=== PATIENT | female | born 1990 | race Two or more races ===

== ENCOUNTER 2024-09-19 14:33 | Emergency (ER) | payer MEDICAID, SELFPAY ==
[2024-09-19 14:50] VITALS: BP 109/67; PULSE 67; RESP 18; TEMP 36.6; O2SAT 99
--- NOTE | 2024-09-19 15:30 | PD.EDRME ---
Rapid Medical Screening Exam RME Arrival date/time: 09/19/24 14:33 Chief Complaint: Neck Pain/Injury Time Seen by Provider: 09/19/24 15:04 Vital signs: Vital Signs Temperature 98 F 09/19/24 14:50 Pulse Rate 67 09/19/24 14:50 Respiratory Rate 18 09/19/24 14:50 Blood Pressure 109/67 09/19/24 14:50 Pulse Oximetry (%) 99 09/19/24 14:50 Oxygen Delivery Method Room Air 09/19/24 14:50 Vital signs reviewed by provider: Yes RME Narrative: 34-year-old female presents to the ED with a complaint of right sided neck pain that started this morning. She states she turned her head to the right and experienced a seizure. After she woke up she vomited. She indicates she is on Keppra 1000 mg every morning and 1500 mg every afternoon. She has not taken her medications in approximately 2 days because she forgets. She denies any recent illness with fever, chills, cough, upper respiratory complaints, diarrhea or abdominal pain. I have greeted and performed a focused initial assessment of this patient. A comprehensive ED assessment and evaluation of the patient, analysis of all test results, and completion of the medical decision making process will be conducted by additional ED providers. Labs and Keppra order level.
--- NOTE | 2024-09-19 15:57 | PC.NURSE ---
Lab cannot find pt.
--- NOTE | 2024-09-19 17:34 | PC.NURSE ---
PT CALLED 4 TIMES W/ NO ANSWER. PT ELOPED.
== END 2024-09-19 17:35 | disposition left against medical advice (07) ==
PROVIDERS: Emergency Provider Family Medicine
DX: M54.2 Cervicalgia (principal); Z53.29 Procedure and treatment not carried out because of patient's decision for other reasons
CPT/HCPCS: 80053; 80177; 80307; 81001; 85025; 87086; 99281

== ENCOUNTER 2024-09-23 12:20 | Emergency (ER) | payer MEDICAID, SELFPAY ==
[2024-09-23 12:21] VITALS: BMI 23.0
--- NOTE | 2024-09-23 12:29 | XR_ITS ---
Examination: Cervical spine 3 views Technique one AP lateral coned AP odontoid cervical spine 3 views Exam date and time: September 23, 2024 1345 hours INDICATIONS: Neck pain post seizure 5 days ago. FINDINGS: No cervical fracture Mild sclerosis and depression of the superior endplate T1 Intact odontoid IMPRESSION: Recommend CT scan thoracic spine follow-up to exclude mild compression T1 vertebral body
[2024-09-23 12:50] VITALS: BP 112/71; PULSE 67; RESP 17; TEMP 36.8; O2SAT 98; BMI 23.0
--- NOTE | 2024-09-23 14:01 | EDNOTE_ITS ---
<Statement entered by Monalisa Yao MD - 09/24/24 14:28> As co-signing physician, I was present and available for consult prn. I concur with the plan and care as documented by the midlevel provider. ED Neck Injury Pain RME/HPI General Chief Complaint: Neck Pain/Injury Stated Complaint: SEEN ON THURSDAY FOR NECK PAIN; NOT GETTING BETTER Time Seen by Provider: 09/23/24 12:29 Arrival date/time: 09/23/24 12:20 34-year-old female presents to the emergency department if complains of cervical pain patient reports no mid or lower back pain patient reports no direct trauma patient reports he had a seizure which she suffers from and had pain in her neck afterward Limitations: no limitations Related Data Home Medications ?Medication ?Instructions ?Recorded ?Confirmed levetiracetam 1,000 mg tablet 1,500 mg PO HS 11/05/19 09/30/23 (Keppra) levetiracetam 1,000 mg tablet 1,000 mg PO QAM 03/27/20 10/01/23 (Keppra) dicyclomine 10 mg capsule 10 mg PO TID PRN Pain 09/30/23 Previous Rx's ?Medication ?Instructions ?Recorded docusate sodium 100 mg capsule 100 mg PO BID #40 caps 10/01/23 (Colace) hydrocodone 5 mg-acetaminophen 325 1 tab PO Q6H PRN pa in (scale score 10/01/23 mg tablet 7-10) #20 tabs ibuprofen 600 mg tablet 600 mg PO Q8H PRN pain (scal e 10/01/23 score 4-6) #15 tabs Allergies Allergy/AdvReac Type Severity Reaction Status Date / Time sulfamethoxazole Allergy Intermediate RASH Verified 09/23/24 12:24 trimethoprim (From Bactrim) Allergy Intermediate Rash Verified 09/23/24 12:24 Review of Systems Review of Systems Systems Reviewed: All systems reviewed, normal except as documented Constitutional Constitutional: Reports system reviewed and no additional complaints, except as documented, Denies fever(s) and Denies headache(s) Eyes Eyes: Reports system reviewed and no additional complaints, except as documented and Denies blurry vision ENT Ears, Nose, Mouth, and Throat: Reports system reviewed and no additional complaints, except as documented, Denies headache(s), Denies nasal congestion, Denies nasal discharge and Reports neck pain Cardiovascular Cardiovascular: Reports system reviewed and no additional complaints, except as documented, Denies chest pain and Denies dyspnea Respiratory Respiratory: Reports system reviewed and no additional complaints, except as documented, Denies chest congestion, Denies cough and Denies dyspnea Gastrointestinal Gastrointestinal: Reports system reviewed and no additional complaints, except as documented and Denies abdominal pain Musculoskeletal Musculoskeletal: Reports system reviewed and no additional complaints, except as documented, Denies deformity, Denies joint swelling, Reports neck pain, Denies numbness, Denies stiffness and Denies tingling Integumentary/Breasts Skin/Breast: Reports system reviewed and no additional complaints, except as documented and Denies rash Neurologic Neurologic: Reports system reviewed and no additional complaints, except as documented, Reports as per HPI, Denies headache(s), Denies numbness and Denies tingling Past Medical History Past Medical History NEUROLOGIC: Positive Neurological Disorders and Seizures CARDIAC: Negative Cardiac Disorders or Congestive Heart Failure RESPIRATORY: Negative Chronic Obstructive Pulmonary Disease (COPD) GASTROINTESTINAL: Positive Gastrointestinal Disorders and Gall Bladder Disease GENITOURINARY: Negative Genitourinary Disorders or Renal Disease REPRODUCTIVE: Positive Previous Pregnancies MUSCULOSKELETAL: Negative Musculoskeletal Disorders ENDOCRINE: Negative Endocrine Disorders, Diabetes Mellitus Type 1 or Diabetes Mellitus Type 2 HEMATOLOGIC: Negative Blood Disorders OTHER HISTORY: Positive Chicken Pox; Negative Hospitalization, Autoimmune Disease, Shingles, Blood Transfusions, Blood Transfusion Reaction, Anesthesia Reactions, MRSA or Cancer Family History FAMILY HISTORY: Positive Family Cancer; Negative Family Psychiatric Problems, Family Respiratory Disorders, Family Cardiac Disorders, Family Gastrointestinal Problems, Family Surgery or Family Anesthesia Reaction Surgical History SURGICAL: Positive Tubal Ligation Social History SMOKING STATUS: Never smoker SUBSTANCE USE: marijuana (marijuana use daily) ED Exam General Limitations: Present no limitations General appearance: Present alert and in no apparent distress Head Head exam: Present atraumatic Eye Eye exam: Present normal appearance, PERRL and EOMI ENT ENT exam: Present normal exam, normal oropharynx and mucous membranes moist Neck Neck exam: Present normal inspection, full ROM and trachea midline Chest Chest inspection: Present normal inspection and symmetric chest wall rise Respiratory Respiratory exam: Present normal lung sounds bilaterally Cardiovascular Cardiovascular exam: Present regular rate, normal rhythm and normal heart sounds Abdominal Exam Abdominal exam: Present soft and normal bowel sounds Extremities Exam Extremities exam: Present normal inspection and full ROM Back Exam Back exam: Present normal inspection and full ROM Neurological Exam Neurological exam: Present alert, oriented X3 and CN II-XII intact Psychiatric Psychiatric exam: Present normal affect and normal mood Skin Skin exam: Present warm, dry, intact and normal color Course Quality Measures none Orders Category Date Time Status XR cervical spine 2-3V Stat Exams 09/23/24 12:29 Completed Vital Signs Vital signs: Vital Signs Temperature 98.3 F 09/23/24 12:50 Pulse Rate 67 09/23/24 12:50 Respiratory Rate 17 09/23/24 12:50 Blood Pressure 112/71 09/23/24 12:50 Pulse Oximetry (%) 98 09/23/24 12:50 Oxygen Delivery Method Room Air 09/23/24 12:50 O2 saturation 98% room air within normal limits Neck Pain MDM Narrative MDM Narrative:: 34-year-old female presents to the emergency department if complains of cervical pain patient reports no mid or lower back pain patient reports no direct trauma patient reports he had a seizure which she suffers from and had pain in her neck afterward On exam patient well-appearing patient does have full range of motion of the neck but does report pain when she looks to the right patient reports no fever or vomiting no dizziness or head pain Imaging obtained no acute emergent findings noted Incidentally there was a questionable abnormality in the thoracic spine patient is instructed have outpatient CT scan for follow-up Patient data External records reviewed:: [facility] previous records Clinical information provided by:: patient Social determinants that could affect healthcare access:: none Patient has the following chronic illnesses:: Seizure disorder How is presenting disease/condition affected by chronic disease/condition?: caused by Evaluation data The following diagnostics were reviewed and interpreted by me:: radiology exam(s) Lab and/or radiology exams considered but not ordered:: Radiology obtain Interpretation Summary: Reviewed by me Medications / Prescriptions Medications or Prescriptions considered but not ordered:: Given Medication administrations:: Given Consultations Consultation(s) initiated? (list below): No Diagnosis Neck Differential Diagnosis: disc disorder of cervical region, whiplash injury to neck, closed subluxation of cervical spine and other (Neck pain) Most likely diagnosis given after review of the tests above:: Neck pain Admission Indicated Admission indicated?: not indicated Admission Request Was there a request for admission?: No Disposition Plan Disposition Plan: Discharge Discharge Attestation Discharge Attestation: The patient and all family members were given an opportunity to ask questions and understood the discharge instructions. Discharge instructions specifically effects, indications for sooner follow up or return to the emergency department, and the expected course of current diagnosis. Patient condition: Stable Discharge Plan Plan Patient Disposition: HOME (Self Care) Disposition Comment: Stable Prescriptions/Referrals Prescriptions/Med Rec: No Action levetiracetam [Keppra] 1,000 mg Tablet 1,500 mg PO HS levetiracetam [Keppra] 1,000 mg Tablet 1,000 mg PO QAM dicyclomine 10 mg capsule 10 mg PO TID PRN (Reason: Pain) docusate sodium [Colace] 100 mg capsule 100 mg PO BID Qty: 40 0RF hydrocodone-acetaminophen 5-325 mg tablet 1 tab PO Q6H MDD 4 PRN (Reason: pain (scale score 7-10)) Qty: 20 0RF ibuprofen 600 mg tablet 600 mg PO Q8H PRN (Reason: pain (scale score 4-6)) Qty: 15 0RF Referrals: No Primary/Family,Physician [Primary Care Provider] - 09/26/24 Problem List Clinical Impression: Strain of neck muscle Patient/Caregiver Discharge Instructions Education Materials: Treating?Strains and Sprains Additional Instructions: Please follow up with your primary care doctor in the next 24-48hrs for any worsening symptoms return here immediately Please have outpatient CT of your thoracic spine Print Language: Niuean Stand Alone Forms: [employer] Award Info., Patient Portal Info Letter PA/ALICIA Supervising Physician TAYLER/ALICIA Supervising Physician: Dr YAO
== END 2024-09-23 14:12 | disposition home or self-care (01) ==
PROVIDERS: Emergency Provider Emergency Medicine
DX: S16.1XXA Strain of muscle, fascia and tendon at neck level, initial encounter (principal); X58.XXXA Exposure to other specified factors, initial encounter
CPT/HCPCS: 72040; 99283

== ENCOUNTER 2024-09-30 21:17 | Emergency (ER) | payer MEDICAID, SELFPAY ==
[2024-09-30 21:54] VITALS: BP 127/72; PULSE 67; RESP 18; TEMP 36.8; O2SAT 100; BMI 21.3
--- NOTE | 2024-09-30 22:05 | XR_ITS ---
Examination: CT cervical spine without contrast 2-D sagittal reconstructions 2-D coronal reconstructions 3-D reconstructions. Exam date and time:September 30, 2024 1033 hours INDICATIONS: Twisting injury to the neck 2 weeks ago, neck pain CTDI:vol (mGy) 12.8 DLP: (mGycm) 244 Technique: Multiple 2 mm axial sections of the cervical spine have been obtained. The coronal and sagittal reconstructions have been obtained. 3-D reconstructions have been obtained. Low dose protocols were performed. One or more of the following dose reduction techniques were used; automated exposure control, adjustment of the mA and/or KV according to patient size, use of iterative reconstruction technique. Findings: Axial sections demonstrate intact base of the skull. C1 exhibit satisfactory relationship to the odontoid. No acute cervical vertebral body fracture seen. Alignment posterior spinous processes satisfactory. Impression: No acute cervical fracture. If neck pain persists, consider MRI cervical spine without contrast follow-up
[2024-09-30] MEDS: HYDROcodone/APAP 5/325 TABLET 1 TAB PO (23:43)
--- NOTE | 2024-10-01 04:50 | EDNOTE_ITS ---
<Statement entered by Monalisa Yao MD - 10/02/24 04:26> As co-signing physician, I was present and available for consult prn. I concur with the plan and care as documented by the midlevel provider. ED Neck Injury Pain RME/HPI General Chief Complaint: Neck Pain/Injury Stated Complaint: NECK PAIN/INJURY WORSENING Time Seen by Provider: 09/30/24 22:05 Arrival date/time: 09/30/24 21:17 34F with history of seizures presents to ED with 2 weeks of worsening neck pain after she hit her head after having a seizure. XR at initial visit here showed possible T1 compression fx. Limitations: no limitations Related Data Home Medications ?Medication ?Instructions ?Recorded ?Confirmed levetiracetam 1,000 mg tablet 1,500 mg PO HS 11/05/19 09/30/23 (Keppra) levetiracetam 1,000 mg tablet 1,000 mg PO QAM 03/27/20 10/01/23 (Keppra) dicyclomine 10 mg capsule 10 mg PO TID PRN Pain 09/30/23 Previous Rx's ?Medication ?Instructions ?Recorded docusate sodium 100 mg capsule 100 mg PO BID #40 caps 10/01/23 (Colace) hydrocodone 5 mg-acetaminophen 325 1 tab PO Q6H PRN pa in (scale score 10/01/23 mg tablet 7-10) #20 tabs ibuprofen 600 mg tablet 600 mg PO Q8H PRN pain (scal e 10/01/23 score 4-6) #15 tabs Allergies Allergy/AdvReac Type Severity Reaction Status Date / Time sulfamethoxazole Allergy Intermediate RASH Verified 09/23/24 12:24 trimethoprim (From Bactrim) Allergy Intermediate Rash Verified 09/23/24 12:24 Review of Systems Review of Systems Systems Reviewed: All systems reviewed, normal except as documented Constitutional Constitutional: Reports system reviewed and no additional complaints, except as documented, Denies fever(s) and Denies headache(s) ENT Ears, Nose, Mouth, and Throat: Denies disequilibrium, Denies headache(s) and Reports neck pain Cardiovascular Cardiovascular: Reports system reviewed and no additional complaints, except as documented, Denies chest pain and Denies dyspnea Respiratory Respiratory: Reports system reviewed and no additional complaints, except as documented, Denies cough and Denies dyspnea Gastrointestinal Gastrointestinal: Reports system reviewed and no additional complaints, except as documented, Denies abdominal pain, Denies nausea and Denies vomiting Musculoskeletal Musculoskeletal: Reports as per HPI and Reports neck pain Neurologic Neurologic: Reports system reviewed and no additional complaints, except as documented, Denies confusion, Denies disequilibrium and Denies headache(s) Psychiatric Psychiatric: Denies confusion Past Medical History Past Medical History NEUROLOGIC: Positive Neurological Disorders and Seizures CARDIAC: Negative Cardiac Disorders or Congestive Heart Failure RESPIRATORY: Negative Chronic Obstructive Pulmonary Disease (COPD) GASTROINTESTINAL: Positive Gastrointestinal Disorders and Gall Bladder Disease GENITOURINARY: Negative Genitourinary Disorders or Renal Disease REPRODUCTIVE: Positive Previous Pregnancies MUSCULOSKELETAL: Negative Musculoskeletal Disorders ENDOCRINE: Negative Endocrine Disorders, Diabetes Mellitus Type 1 or Diabetes Mellitus Type 2 HEMATOLOGIC: Negative Blood Disorders OTHER HISTORY: Positive Chicken Pox; Negative Hospitalization, Autoimmune Disease, Shingles, Blood Transfusions, Blood Transfusion Reaction, Anesthesia Reactions, MRSA or Cancer Family History FAMILY HISTORY: Positive Family Cancer; Negative Family Psychiatric Problems, Family Respiratory Disorders, Family Cardiac Disorders, Family Gastrointestinal Problems, Family Surgery or Family Anesthesia Reaction Surgical History SURGICAL: Positive Tubal Ligation Social History SMOKING STATUS: Never smoker SUBSTANCE USE: marijuana (marijuana use daily) ED Exam General Limitations: Present no limitations General appearance: Present alert and in no apparent distress Head Head exam: Present atraumatic Eye Eye exam: Present normal appearance, PERRL and EOMI ENT ENT exam: Present normal exam, normal oropharynx and mucous membranes moist Neck Neck exam: Present trachea midline and tenderness Chest Chest inspection: Present normal inspection and symmetric chest wall rise Respiratory Respiratory exam: Present normal lung sounds bilaterally Cardiovascular Cardiovascular exam: Present regular rate, normal rhythm and normal heart sounds Abdominal Exam Abdominal exam: Present soft and normal bowel sounds Extremities Exam Extremities exam: Present normal inspection and full ROM Back Exam Back exam: Present normal inspection and full ROM Neurological Exam Neurological exam: Present alert, oriented X3 and CN II-XII intact Psychiatric Psychiatric exam: Present normal affect and normal mood Skin Skin exam: Present warm, dry, intact and normal color Course Quality Measures none Orders Category Date Time Status CT cervical spine wo con Stat Exams 09/30/24 22:05 Completed HYDROcodone*/APAP 5/325 [Byram 5/325] Med 09/30/24 23:29 Discontinued 1 tab PO X1 ONE Vital Signs Vital signs: Vital Signs Temperature 98.2 F 09/30/24 21:54 Pulse Rate 67 09/30/24 21:54 Respiratory Rate 18 09/30/24 21:54 Blood Pressure 127/72 09/30/24 21:54 Pulse Oximetry (%) 100 09/30/24 21:54 Oxygen Delivery Method Room Air 09/30/24 21:54 O2 at 100% on RA and WNLs Neck Pain MDM Narrative MDM Narrative:: 34F with history of seizures presents to ED with 2 weeks of worsening neck pain after she hit her head after having a seizure. XR at initial visit here showed possible T1 compression fx. Physical exam reveals some neck tenderness and limited ROM. Gait normal. Extremities normal. Patient is afebrile, calm, and alert. CT reveals no fx. Director Of Contracts given. Patient data External records reviewed:: [facility] [place] Clinical information provided by:: patient Social determinants that could affect healthcare access:: none Patient has the following chronic illnesses:: none How is presenting disease/condition affected by chronic disease/condition?: no chronic disease Evaluation data The following diagnostics were reviewed and interpreted by me:: radiology exam(s) Lab and/or radiology exams considered but not ordered:: ordered Interpretation Summary: above Medications / Prescriptions Medications or Prescriptions considered but not ordered:: ordered Medication administrations:: Medication Administration History Discontinued Medications Hydrocodone Bitart/Acetaminophen (Hydrocodone/Apap 5/325 Tablet) 1 tab PO X1 ONE Stop: 09/30/24 23:30 Last Admin: 09/30/24 23:43 Dose: 1 tab Documented By: above Consultations Consultation(s) initiated? (list below): No Diagnosis Neck Differential Diagnosis: disc disorder of cervical region, whiplash injury to neck, closed subluxation of cervical spine, fracture of cervical spine without lesion of spinal cord, cervical radiculopathy, vertebral artery dissection, torticollis, cervical spondylosis and strain of neck muscle Most likely diagnosis given after review of the tests above:: strain of neck muscle Admission Indicated Admission indicated?: not indicated Admission Request Was there a request for admission?: No Disposition Plan Disposition Plan: Discharge Discharge Attestation Discharge Attestation: The patient and all family members were given an opportunity to ask questions and understood the discharge instructions. Discharge instructions specifically effects, indications for sooner follow up or return to the emergency department, and the expected course of current diagnosis. Patient condition: Stable Discharge Plan Plan Patient Disposition: HOME (Self Care) Discharge Disposition comment: Stable Prescriptions/Referrals Prescriptions/Med Rec: No Action levetiracetam [Keppra] 1,000 mg Tablet 1,500 mg PO HS levetiracetam [Keppra] 1,000 mg Tablet 1,000 mg PO QAM dicyclomine 10 mg capsule 10 mg PO TID PRN (Reason: Pain) docusate sodium [Colace] 100 mg capsule 100 mg PO BID Qty: 40 0RF hydrocodone-acetaminophen 5-325 mg tablet 1 tab PO Q6H MDD 4 PRN (Reason: pain (scale score 7-10)) Qty: 20 0RF ibuprofen 600 mg tablet 600 mg PO Q8H PRN (Reason: pain (scale score 4-6)) Qty: 15 0RF Referrals: No Primary/Family,Physician [Primary Care Provider] - In 1 week Problem List Clinical Impression: Strain of neck muscle Patient/Caregiver Discharge Instructions Education Materials: ED Neck Sprain or Strain Additional Instructions: Please follow-up with PCP within 24-48 hours and return immediately if symptoms worsen. If problem persists, recommend outpatient PT and/or MRI follow-up. In the meantime, rest, use ice/heat, and/or compression. Print Language: Japanese Stand Alone Forms: Patient Portal Info Letter PA/TRAVEL DIRECTOR Supervising Physician TAYLER/ALICIA Supervising Physician: Dr. Yao
== END 2024-09-30 23:51 | disposition home or self-care (01) ==
PROVIDERS: Emergency Provider Emergency Medicine
DX: S16.1XXA Strain of muscle, fascia and tendon at neck level, initial encounter (principal); X58.XXXA Exposure to other specified factors, initial encounter
CPT/HCPCS: 72125; 99284; A9270

== ENCOUNTER → 2025-03-01 | Outpatient (CLI) | payer MEDICAID, SELFPAY ==
--- NOTE | 2025-03-01 16:30 | XR_ITS ---
Examination: CT thoracic spine, without contrast. 2-D sagittal reconstructions. 2-D coronal reconstructions. 3-D reconstructions. Date and time of exam:March 01, 2025, 1634 hrs. Indications: Upper back pain 6 months after seizure CTDI: vol (mGy):19.6 DLP: (mGycm):672 Technique: Multiple 1.25 mm axial sections of the thoracic spine without intravenous contrast have been obtained. 2-D sagittal and coronal reconstructions have been obtained. 3-D reconstructions have been obtained. Low dose protocols were performed. One or more of the following dose reduction techniques were used; automated exposure control, adjustment of the mA and/or KV according to patient size, use of iterative reconstruction technique. Findings: Mild osteopenia. Satisfactory alignment thoracic vertebral bodies. No thoracic vertebral body compression fracture. Thoracic pedicles, laminae, transverse and posterior spinous processes appear intact Axial images demonstrate no focal thoracic disc protrusion Impression: No thoracic fracture No focal thoracic disc protrusion If back pain persists, consider MRI thoracic spine without contrast follow-up.
== END | disposition home or self-care (01) ==
PROVIDERS: PCP Physician Assistant; Referring Provider Physician Assistant; Visit Provider Physician Assistant
DX: M43.9 Deforming dorsopathy, unspecified (principal)
CPT/HCPCS: 72128

== ENCOUNTER 2025-05-24 15:06 | Emergency (ER) | payer MEDICAID, SELFPAY ==
[2025-05-24 15:12] VITALS: BP 126/77; PULSE 75; RESP 16; TEMP 36.9; O2SAT 100; BMI 23.0
--- NOTE | 2025-05-24 15:17 | XR_ITS ---
Examination: Pelvic ultrasound, transabdominal, complete Technique: Transabdominal ultrasound of the pelvis performed using grayscale imaging Date and time of exam: 05/24/2025 at 3:26 p.m. FINDINGS: The uterus is anteverted, it measured 8.9 cm in length and 4.4 x 5.8 cm in transverse measurement which are normal. The endometrium appears unremarkable, and measures 0.73 cm the right ovary is a little prominent in size but otherwise it appears normal. There is normal color flow vascularity extending to the right ovary, its maximum size is 2 x 3.8 cm. The left ovary has a normal appearance and it measures 2.3 x 3.9 cm in diameter. There is normal color flow vascularity extending to the left ovary. There is a very tiny amount of free fluid in the cul-de-sac, the tiny amount of this fluid makes it of very doubtful significance. IMPRESSION: 1. Pelvic ultrasound is essentially entirely normal, with a an extremely tiny amount of free fluid in the cul-de-sac
[2025-05-24 15:41] LABS: Basophils # (Auto) 0.0 Thou/mm3 (0.0-0.2); Basophils % (Auto) 1 % (0-2.5); Eosinophils # (Auto) 0.1 Thou/mm3 (0.0-0.5); Eosinophils % (Auto) 2 % (0-10); Hematocrit 40.6 % (36.0-46.0); Hemoglobin 14.3 g/dL (12.0-16.0); Immature Granulocytes Auto 0.01 Thou/mm3 (0.00-0.00); Lymphocytes # (Auto) 1.8 Thou/mm3 (1.0-4.8); Lymphocytes % (Auto) 32 % (10-50); Mean Corpuscular HGB Conc 35.2 g/dl (31.0-37.0); Mean Corpuscular Hemoglobin 31.4 pg (25.0-35.0); Mean Corpuscular Volume 89 fL (80-100); Monocytes # (Auto) 0.5 Thou/mm3 (0.0-0.8); Monocytes % (Auto) 9 % (0-12); Neutrophils # (Auto) 3.1 Thou/mm3 (1.8-7.7); Neutrophils % (Auto) 56 % (37-80); Nucleated Red Blood Cell # 0.00 Thou/mm3 (0.00-0.00); Nucleated Red Blood Cell % 0 /100 WBC (0); Platelet Count 170 Thou/mm3 (140-440); RDW Standard Deviation 41.1 fL (36.4-46.3); Red Blood Count 4.55 Miln/mm3 (4.00-5.20); White Blood Count 5.6 Thou/mm3 (3.6-11.0)
[2025-05-24 15:51] LABS: INR 1.0 (0.9-1.3); Partial Thromboplastin Time 26.9 Seconds (22.0-36.0); Prothrombin Time 10.9 Seconds (9.0-12.2)
[2025-05-24 15:53] LABS: Alanine Aminotransferase 10 U/L (10-49); Albumin, Serum 4.6 gm/dL (3.5-5.0); Albumin/Globulin Ratio 1.7 (1.2-2.2); Alkaline Phosphatase 50 U/L (46-116); Anion Gap 9 (7-16); Aspartate Amino Transferase 19 U/L (0-34); BUN/Creatinine Ratio 9 Ratio (12-20); Bilirubin,Total 0.6 mg/dL (0.3-1.2); Blood Urea Nitrogen 8 mg/dL (9-23); Calcium 9.6 mg/dL (8.3-10.6); Calcium (Corrected) 9.6 mg/dL (8.5-10.1); Carbon Dioxide 27.0 mMol/L (20.0-31.0); Chloride 106 mMol/L (98-107); Creatinine (Component) 0.9 mg/dL (0.6-1.3); Estimated Creatinine Clearance 73.5 mL/min (>60); Globulin 2.7 gm/dL (2.3-3.5); Glucose 94 mg/dL (74-106); Osmolality,Calculated 281 (275-295); Potassium 4.2 mMol/L (3.4-5.1); Sodium 142 mMol/L (136-145); Total Protein 7.3 gm/dL (5.7-8.2); eGFR > 60 See Note
[2025-05-24 16:01] LABS: HCG,Qualitative Serum Negative
--- NOTE | 2025-05-24 17:11 | PD.EDVAGBL ---
ED OB Contraction Preg RMI/HPI General Chief complaint: Vaginal Bleeding Stated complaint: DIZZY, HEAVY VAGINAL BLEEDING W/ CLOTS, WEAK Time Seen by Provider: 05/24/25 15:14 Arrival date/time: 05/24/25 15:06 This is a case of 35-year-old female with no medical history came in in the emergency room due to vaginal bleeding for almost a month patient states that she is not and started to have bleeding 1 month ago become worse 1 week prior to arrival in the emergency room with heavy blood clots today patient noted to have mild dizziness thus decided to sought consult here in the emergency room patient have 2 para 2 Limitations: no limitations Related Data Home Medications ?Medication ?Instructions ?Recorded ?Confirmed levetiracetam 1,000 mg tablet 1,500 mg PO HS 11/05/19 09/30/23 (Keppra) levetiracetam 1,000 mg tablet 1,000 mg PO QAM 03/27/20 10/01/23 (Keppra) dicyclomine 10 mg capsule 10 mg PO TID PRN Pain 09/30/23 09/30/23 Previous Rx's ?Medication ?Instructions ?Recorded docusate sodium 100 mg capsule 100 mg PO BID #40 caps 10/01/23 (Colace) hydrocodone 5 mg-acetaminophen 325 1 tab PO Q6H PRN pain (scale score 10/01/23 mg tablet 7-10) #20 tabs ibuprofen 600 mg tablet 600 mg PO Q8H PRN pain (scale 10/01/23 score 4-6) #15 tabs medroxyprogesterone 10 mg tablet 10 mg PO QDAY #10 tabs 05/24/25 (Provera) Allergies Allergy/AdvReac Type Severity Reaction Status Date / Time sulfamethoxazole Allergy Intermediate RASH Verified 05/24/25 15:08 trimethoprim (From Bactrim) Allergy Intermediate Rash Verified 05/24/25 15:08 Review of Systems Review of Systems Systems Reviewed: All systems reviewed, normal except as documented Past Medical History Past Medical History NEUROLOGIC: Positive Neurological Disorders and Seizures CARDIAC: Negative Cardiac Disorders or Congestive Heart Failure RESPIRATORY: Negative Chronic Obstructive Pulmonary Disease (COPD) GASTROINTESTINAL: Positive Gastrointestinal Disorders and Gall Bladder Disease GENITOURINARY: Negative Genitourinary Disorders or Renal Disease REPRODUCTIVE: Positive Previous Pregnancies MUSCULOSKELETAL: Negative Musculoskeletal Disorders ENDOCRINE: Negative Endocrine Disorders, Diabetes Mellitus Type 1 or Diabetes Mellitus Type 2 HEMATOLOGIC: Negative Blood Disorders OTHER HISTORY: Positive Chicken Pox; Negative Hospitalization, Autoimmune Disease, Shingles, Blood Transfusions, Blood Transfusion Reaction, Anesthesia Reactions, MRSA or Cancer Family History FAMILY HISTORY: Positive Family Cancer; Negative Family Psychiatric Problems, Family Respiratory Disorders, Family Cardiac Disorders, Family Gastrointestinal Problems, Family Surgery or Family Anesthesia Reaction Surgical History SURGICAL: Positive Tubal Ligation Social History SMOKING STATUS: Never smoker SUBSTANCE USE: marijuana (marijuana use daily) ED Exam General Limitations: Present no limitations General appearance: Present alert, in no apparent distress and other (Patient is awake alert oriented not in distress nontoxic looking well-hydrated well-nourished) Head Head exam: Present atraumatic, normocephalic and normal inspection Eye Eye exam: Present normal appearance, PERRL and EOMI ENT ENT exam: Present normal exam, normal oropharynx and mucous membranes moist Neck Neck exam: Present normal inspection, full ROM and trachea midline; Absent tenderness, meningismus, lymphadenopathy or thyromegaly Chest Chest inspection: Present normal inspection and symmetric chest wall rise; Absent tenderness Respiratory Respiratory exam: Present normal lung sounds bilaterally; Absent respiratory distress, wheezes, stridor or accessory muscle use Cardiovascular Cardiovascular exam: Present regular rate, normal rhythm and normal heart sounds; Absent bradycardia, irregular rhythm, systolic murmur or diastolic murmur Abdominal Exam Abdominal exam: Present soft and normal bowel sounds; Absent distention, tenderness, guarding, rebound, rigidity, diminished bowel sounds, hyperactive bowel sounds, organomegaly, psoas sign, obturator sign, heel tap sign, Ramirez's sign, Rovsing's sign or tenderness at McBurney's Point External exam: Present other (Patient refused) Extremities Exam Extremities exam: Present normal inspection and full ROM Back Exam Back exam: Present normal inspection and full ROM Neurological Exam Neurological exam: Present alert, oriented X3, CN II-XII intact, normal gait, reflexes normal and other (atient is awake alert oriented x 4 no focal deficit GCS 15/15 steady gait memory intact no slurring of speech no facial droop motor or sensory reflex were normal in all extremities negative Babinski); Absent motor sensory deficit Psychiatric Psychiatric exam: Present normal affect and normal mood Skin Skin exam: Present warm, dry, intact, normal color and other (Excellent skin turgor) Course Quality Measures none Orders Category Date Time Status US pelvic complete Stat Exams 05/24/25 15:17 Completed CBC Stat Lab 05/24/25 15:25 Completed Comprehensive Metabolic Panel Stat Lab 05/24/25 15:25 Completed HCG,Qualitative Serum Stat Lab 05/24/25 15:25 Completed Partial Thromboplastin Time Stat Lab 05/24/25 15:25 Completed Prothrombin Time with INR Stat Lab 05/24/25 15:25 Completed MEDRoxyPROGESTERone ACET [Provera] Med 05/24/25 17:08 Once 10 mg PO X1 ONE Vital Signs Vital signs: Vital Signs Temperature 98.4 F 05/24/25 15:12 Pulse Rate 75 05/24/25 15:12 Respiratory Rate 16 05/24/25 15:12 Blood Pressure 126/77 05/24/25 15:12 Pulse Oximetry (%) 100 05/24/25 15:12 Oxygen Delivery Method Room Air 05/24/25 15:12 Oxygen saturation is 100% normal Vaginal Bleeding MDM Narrative MDM Narrative: This is a case of 35-year-old female with no medical history came in in the emergency room due to vaginal bleeding for almost a month patient states that she is not and started to have bleeding 1 month ago become worse 1 week prior to arrival in the emergency room with heavy blood clots today patient noted to have mild dizziness thus decided to sought consult here in the emergency room patient have 2 para 2 physical examination patient is awake alert oriented not in distress nontoxic looking well-hydrated well-nourished excellent skin turgor abdominal exam is benign nonsurgical no guarding no rebound no rigidity no tenderness negative psoas negative straight or negative Rovsing's negative McBurney's no Ramirez sign negative CVA tenderness pelvic exam is not done due to refusal of the patient patient is not comfortable due to vaginal bleeding blood test showed no leukocytosis no anemia platelet is normal kidney and liver function is normal no electrolyte urinalysis is normal and pelvic ultrasound is normal patient is not based on my physical examination and history patient have abnormal vaginal bleeding patient was given Provera here in the emergency room and was discharged with Provera for 10 days I have a long discussion with the patient patient needs to see an OB classified ad taker for further evaluation and treatment and possible hormonal treatment for any recurrence persistent worsening symptoms or any emergent concern return precaution in the ER is advsied Patient was discharged with comfortable condition walking with stable gait. Patient verbalized no further complains explained diagnosis and answered patient question. Patient is comfortable with the proposed management plan including the need to follow up with his/her primary care physician and any specialist if applicable Discussed patient for any urgent condition or worsening sx, He/She needed to go to emergency room immediately or call 911. Patient acknowledge the responsibility to follow up as instructed and to monitor her/his symptoms. For any persistence of the symptoms for more than 3-5 days return precaution advised. Discussed the result of the test and was given printed discharge instruction Patient data External records reviewed:: [facility] previous records Clinical information provided by:: patient Social determinants that could affect healthcare access:: none Patient has the following chronic illnesses:: None How is presenting disease/condition affected by chronic disease/condition?: no chronic disease Evaluation data The following diagnostics were reviewed and interpreted by me:: lab results and radiology exam(s) Lab and/or radiology exams considered but not ordered:: Reviewed Interpretation Summary: Reviewed Medications / Prescriptions Medications or Prescriptions considered but not ordered:: Given Medication administrations:: Medication Administration History Medroxyprogesterone Acetate (Medroxyprogesterone Acet 2.5 Mg Tablet) 10 mg PO X1 ONE Stop: 05/24/25 17:09 Give Consultations Consultation(s) initiated? (list below): No Diagnosis Vaginal Bleeding Differential Diagnosis: dysfunctional uterine bleeding, menometrorrhagia and vaginal bleeding Most likely diagnosis given after review of the tests above:: Abnormal vaginal bleed Admission Indicated Admission indicated?: not indicated Explain why admission is indicated or not indicated:: Not indicated Admission Request Was there a request for admission?: No Admission Attestation Admission request attestation: Not indicate Disposition Plan Disposition Plan: Discharge Discharge Attestation Discharge Attestation: The patient and all family members were given an opportunity to ask questions and understood the discharge instructions. Discharge instructions specifically effects, indications for sooner follow up or return to the emergency department, and the expected course of current diagnosis. Patient condition: Stable Discharge Plan Plan Patient Disposition: HOME (Self Care) Patient condition on transfer: Stable Prescriptions/Referrals Prescriptions/Med Rec: New medroxyprogesterone [Provera] 10 mg tablet 10 mg PO QDAY Qty: 10 0RF No Action levetiracetam [Keppra] 1,000 mg Tablet 1,500 mg PO HS levetiracetam [Keppra] 1,000 mg Tablet 1,000 mg PO QAM dicyclomine 10 mg capsule 10 mg PO TID PRN (Reason: Pain) docusate sodium [Colace] 100 mg capsule 100 mg PO BID Qty: 40 0RF hydrocodone-acetaminophen 5-325 mg tablet 1 tab PO Q6H MDD 4 PRN (Reason: pain (scale score 7-10)) Qty: 20 0RF ibuprofen 600 mg tablet 600 mg PO Q8H PRN (Reason: pain (scale score 4-6)) Qty: 15 0RF Referrals: Blas Castro MD [Primary Care Provider, Family Practice] - In 1 week Problem List Clinical Impression: Abnormal vaginal bleeding Patient/Caregiver Discharge Instructions Education Materials: ED Dysfunctional Uterine Bleeding Additional Instructions: it is very important to see an OB classified ad taker for further evaluation and treatment of your abnormal uterine bleeding follow-up with your primary care physician in 2 days for reevaluation and to be referred to OB classified ad taker for further evaluation and treatment of your abnormal uterine bleeding recurrence persistent worsening symptoms or any emergent concern call 911 or go to the nearest emergency room take your medication as directed keep hydrated Print Language: French Stand Alone Forms: [employer] Award Info., Patient Portal Info Letter PA/[employer] Supervising Physician PA/ALICIA Supervising Physician: Dr. Patten
== END 2025-05-24 17:50 | disposition home or self-care (01) ==
PROVIDERS: Nurse Practitioner Primary Care; Emergency Provider Family Medicine; PCP Family Medicine
DX: N93.9 Abnormal uterine and vaginal bleeding, unspecified (principal)
CPT/HCPCS: 36415; 76856; 80053; 84703; 85025; 85610; 85730; 99283; A9270